=== PATIENT | female | born 1960 | race Caucasian/White ===

== ENCOUNTER 2017-09-23 08:19 | Emergency (ER) | payer SELFPAY ==
[~2017-09-23] VITALS: Ht 167.6 cm; Wt 76.2 kg
[~2017-09-23 08:19] MED LIST: AMOX1TAB61 PO; CEPH-368 PO; CIPR500T87 PO; DIAZ5TAB PO; GABA300C PO; METH4TAB2 PO; MORP15TA3 PO
[2017-09-23] MEDS ORDERED: SODIUM CHLORIDE 0.9% 1,000 ML IV ONE (09:06)
[2017-09-23] MEDS ORDERED: FAMOTIDINE 20 MG/2 ML ONE (09:13)
[2017-09-23] MEDS ORDERED: ONDANSETRON 2MG/ML, 2ML ONE (09:13)
[2017-09-23] MEDS ORDERED: SODIUM CHLORIDE 0.9% 1,000ML IVBOLUS ONE (09:30)
[2017-09-23] MEDS ORDERED: ONDANSETRON 2MG/ML, 2ML IVPush ONE (09:30)
[2017-09-23] MEDS ORDERED: FAMOTIDINE 20 MG/2 ML IVP ONE (09:30)
[2017-09-23] MEDS ORDERED: SODIUM CHLORIDE FLUSH 10ML SYR IVF ONE (09:30)
[2017-09-23 09:37] LABS: BASOPHILS # (AUTO) 0.03 x10^3/uL (0-0.1); BASOPHILS % (AUTO) 0 % (0-1); EOSINOPHILS # (AUTO) 0.22 x10^3/uL (0-0.4); EOSINOPHILS % (AUTO) 3 % (1-7); LYMPHOCYTES # (AUTO) 2.08 x10^3/uL (1-3.4); LYMPHOCYTES % (AUTO) 28 % (22-44); MD NO; MEAN CORPUSCULAR HEMOGLOBIN 30.2 pg (27.0-34.8); MEAN CORPUSCULAR HGB CONC 33.3 g/dL (32.4-35.8); MEAN CORPUSCULAR VOLUME 90.7 fL (80-100); MEAN PLATELET VOLUME 7.2 fL (7.4-10.4); MONOCYTES # (AUTO) 0.87 x10^3/uL (0.2-0.8); MONOCYTES % (AUTO) 12 % (2-9); NEUTROPHILS # (AUTO) 4.35 x10^3/uL (1.8-6.8); NEUTROPHILS % (AUTO) 58 % (42-75); PLATELET COUNT 259 x10^3/uL (130-400); RED BLOOD COUNT 5.22 x10^6/uL (3.82-5.3); RED CELL DISTRIBUTION WIDTH 13.2 % (9.6-15.2)
[2017-09-23 09:46] LABS: ALANINE AMINOTRANSFERASE 44 U/L (12-78); ANION GAP 6 mmol/L (5-15); CALCIUM 8.4 mg/dL (8.5-10.1); CHLORIDE 106 mmol/L (98-107); CREATININE 0.89 mg/dL (0.55-1.02)
[2017-09-23 09:49] LABS: ALKALINE PHOSPHATASE 117 U/L (45-117); BILIRUBIN,TOTAL 0.8 mg/dL (0.2-1.0); TOTAL PROTEIN 8.3 g/dL (6.4-8.2)
[2017-09-23 10:00] LABS: ACETONE, SERUM Negative (Negative)
[2017-09-23 10:11] LABS: MICROSCOPIC INDICATED
[2017-09-23 10:12] LABS: CULTURE INDICATED? YES
[2017-09-23 10:54] VITALS: BP 118/75
[2017-09-23] MEDS ORDERED: ACETAMINOPHEN 325 MG TABLET ONE (10:54)
[2017-09-23] MEDS ORDERED: ACETAMINOPHEN 325 MG TABLET PO ONE (11:00)
== END 2017-09-23 11:01 | disposition home or self-care (01) ==
LOC: ED 10:20
DX: N30.90 Cystitis, unspecified without hematuria (principal); B34.9 Viral infection, unspecified
CPT/HCPCS: 36415; 71045; 80053; 81001; 82010; 83605; 83690; 85025; 87040; 87086; 96361; 96374; 96375; 99285; J2405; J7030; S0028

== ENCOUNTER → 2020-07-19 | Outpatient (CLI) | payer BC ==
[~2020-07-19] MED LIST changes: +MORP-29 PO; -MORP15TA3 PO
== END | disposition home or self-care (01) ==
LOC: CFH 15:23
PROVIDERS: ATTEND Internal Medicine
DX: N20.0 Calculus of kidney (principal); N12 Tubulo-interstitial nephritis, not specified as acute or chronic; N39.0 Urinary tract infection, site not specified; Q61.5 Medullary cystic kidney; E78.5 Hyperlipidemia, unspecified
CPT/HCPCS: 74176

== ENCOUNTER → 2020-12-06 | Outpatient (CLI) | payer BC | END | disposition home or self-care (01) | LOC: RAD 09:54 | PROVIDERS: ATTEND Internal Medicine Gastroenterology | DX: R11.2 Nausea with vomiting, unspecified (principal); R10.13 Epigastric pain; Z86.010 Personal history of colon polyps | CPT/HCPCS: 78264; A9541 ==